=== PATIENT | female | born 1940 | race Caucasian/White ===

== ENCOUNTER → 2020-11-24 10:43 | Outpatient (CLI) | payer MEDICARE, BC ==
[2010-10-13 07:41] VITALS: BMI 22.3
--- NOTE | 2020-11-25 14:07 | EC ---
PATIENT:SHONDA LUCIANO DATE OF SERVICE: 11/24/20 SEX: F MEDICAL RECORD: [id number] DATE OF : 36 LOCATION:D. AGE OF PATIENT: 80 ADMISSION DATE: 11/24/20 REFERRING PHYSICIAN: INTERPRETING PHYSICIAN: ABRAN FELIPE MD ECHOCARDIOGRAM REPORT ECHO CHARGES 4 ECHO COMPLETE Date: 11/24/20 CLINICAL DIAGNOSIS: ESS. HTN/HEART MURMUR ECHOCARDIOGRAPHIC MEASUREMENTS (adult normal given) AC root (d.<3.7cm) 2.9 cm LV Septum d (<1.2 cm> 1.1 cm Valve Excursion 1.6 cm LV Septum (systole) 1.2 cm Left Atria (s.<4.0cm> 3.3 cm LVPW d(<1.2cm) 1.2 cm RV (d.<2.3cm) 4.4 cm LVPW (sytole) 1.4 cm LV diastole(<5.6CM) 4.6 cm MV E-F(>70mm/sec) cm LV systole 3.0 cm LVOT Diameter 1.8 cm MV exc.(>10mm) 1.2 cm Est.ejection fraction (50-75%) % DOPPLER: LVIT cm/sec A 95.0 cm/sec E 73.0 cm/sec LA cm/sec RVSP 39 mmHg LVOT 101 cm/sec AOP1/2T m/s Asc. Ao 124 cm/sec RVOT 69 cm/sec RA cm/sec PA 125 cm/sec AV Gradient Peak 6.11 mmHg AV Mean 3.23 mmHg AV Area 2.2 cm MV Gradient Peak 7.70 mmHg MV Mean 2.99 mmHg MV Area cm COMMENTS: Chairlift Operator: 2 MO WEBER Corporate Manager: 3 Dr. Peterson TAPE# PACS Pericardial Effusion N DATE OF SERVICE: Adequate 2D, color flow imaging, spectral Doppler, and M-Mode. No LVH. LV internal dimensions are normal. Wall motion normal. EF greater than or equal to 55%. Aortic valve is sclerotic. No evidence of stenosis by Doppler interrogation. Left atrium is normal at 3.3 cm. Mitral valve shows no prolapse. Trace MR. Right-sided chambers are grossly normal. Mild TR. TRANSINT:[id number] Voice Confirmation ID: [id number] DOCUMENT ID: [id number] ECHOCARDIOGRAM REPORT [id number] SHONDA LUCIANO GREGORY A MD at 1407 CC: [id number] DICTATION DATE: 11/24/20 1640 PATIENT PORTAL REPRESENTATIVE: 11/25/20 0819 DEP CLI 11/24/20 [id number] [place] [address]
== END | disposition home or self-care (01) ==
LOC: D.US 10:43
PROVIDERS: ATTEND Internal Medicine Interventional Cardiology
DX: I65.29 Occlusion and stenosis of unspecified carotid artery (principal); I10 Essential (primary) hypertension